=== PATIENT | male | born 1950 | race Asian ===

== ENCOUNTER → 2016-10-06 | Outpatient (CLI) | payer MEDICARE, OTHER | END | disposition home or self-care (01) | LOC: RADPV 13:29 | PROVIDERS: ATTEND Legal Medicine | DX: J18.9 Pneumonia, unspecified organism (principal); I51.7 Cardiomegaly; Z95.0 Presence of cardiac pacemaker | CPT/HCPCS: 71020 ==

== ENCOUNTER → 2019-04-04 | Outpatient (CLI) | payer MEDICARE, OTHER | END | disposition home or self-care (01) | LOC: RADMN 13:09 | PROVIDERS: ATTEND Legal Medicine | DX: J43.2 Centrilobular emphysema (principal); I25.10 Atherosclerotic heart disease of native coronary artery without angina pectoris; I51.7 Cardiomegaly; Z72.0 Tobacco use | CPT/HCPCS: 71250 ==

== ENCOUNTER → 2023-05-05 | Outpatient (CLI) | payer MEDICARE, OTHER ==
[~2023-05-05] MED LIST: IOHEXOL 350 MG/ML 100 ML VIAL ONE; SODIUM CHLORIDE 0.9% 100 ML ONE
== END | disposition home or self-care (01) ==
LOC: RADMN 08:37
PROVIDERS: ATTEND Legal Medicine
DX: I51.7 Cardiomegaly (principal); J20.9 Acute bronchitis, unspecified; J84.10 Pulmonary fibrosis, unspecified; J98.4 Other disorders of lung; J43.9 Emphysema, unspecified; M47.814 Spondylosis without myelopathy or radiculopathy, thoracic region; Z98.890 Other specified postprocedural states
CPT/HCPCS: 71260; Q9967; J7050

== ENCOUNTER → 2023-10-11 | Outpatient (CLI) | payer MEDICARE, OTHER ==
[~2023-10-11] VITALS: Ht 160 cm; Wt 55.0 kg
[~2023-10-11] MED LIST changes: +ATOR40TA28 PO; +DIGO125T84 PO; +FURO20 PO; -IOHEXOL 350 MG/ML 100 ML VIAL ONE; +LEVO75 PO; +LISI-894 PO; +METO-325 PO; +NITR0.4T52 SL; +RIVA20TA PO; -SODIUM CHLORIDE 0.9% 100 ML ONE
[2023-10-11 11:35] VITALS: BP 110/56; PULSE 75; RESP 18; TEMP 98.2; O2SAT 99
== END | disposition home or self-care (01) ==
LOC: SRCNTR 11:11
PROVIDERS: ATTEND Internal Medicine Pulmonary Disease
DX: J44.1 Chronic obstructive pulmonary disease with (acute) exacerbation (principal); J47.9 Bronchiectasis, uncomplicated; E78.5 Hyperlipidemia, unspecified; R63.4 Abnormal weight loss; F17.200 Nicotine dependence, unspecified, uncomplicated
CPT/HCPCS: G0463